=== PATIENT | female | born 1945 | race African-American/Black ===

== ENCOUNTER 2017-10-04 13:21 | Outpatient (CLI) | payer MEDICARE | END 2017-10-04 13:22 | disposition home or self-care (01) | LOC: BICMAMMO 13:21 | PROVIDERS: ATTEND Internal Medicine | DX: Z12.31 Encounter for screening mammogram for malignant neoplasm of breast (principal) | CPT/HCPCS: 77063; 77067 ==

== ENCOUNTER 2018-05-28 06:40 | Emergency (ER) | payer MEDICARE ==
[2018-05-28] MEDS ORDERED: HYDROcodone/Acetaminophen 5/325 mg Tablet ONE (08:02)
--- NOTE | 2018-05-28 09:38 | RAD ---
RIGHT HAND 3 VIEWS: INDICATION: Swelling. FINDINGS: There is a generalized moderate arthropathy throughout the right hand. No acute fracture. No radiop aque foreign body. IMPRESSION: 1. No definitive evidence for acute osseous abnormality of the right hand. 2. Moderate arthropathy. Correlate clinically. POS: [facility]
== END 2018-05-28 08:37 | disposition home or self-care (01) ==
LOC: ERS 06:40
DX: M10.9 Gout, unspecified (principal); E11.9 Type 2 diabetes mellitus without complications; E78.5 Hyperlipidemia, unspecified; I10 Essential (primary) hypertension; K21.9 Gastro-esophageal reflux disease without esophagitis; Z79.899 Other long term (current) drug therapy; Z79.82 Long term (current) use of aspirin; Z79.84 Long term (current) use of oral hypoglycemic drugs

== ENCOUNTER 2018-06-30 15:31 | Outpatient (CLI) | payer MEDICARE ==
--- NOTE | 2018-06-30 16:04 | ULT ---
EXAM: Right lower extremity venous Doppler US HISTORY: Right lower extremity pain FINDINGS: Grayscale, color-flow, Doppler evaluation, spectral analysis of the right lower extremity venous stru ctures is performed with 2-D imaging. The left common femoral, superficial femoral, popliteal, posterior tibial, proximal greater saphenous and profunda femoral veins are imaged. There is normal luminal compressibility, flow, and augmentation the visualized deep venous structures of the right lower extremity. IMPRESSION: No evidence of a deep vein thrombosis in the right lower extremity.
== END 2018-06-30 15:32 | disposition home or self-care (01) ==
LOC: BICULT 15:31
PROVIDERS: ATTEND Internal Medicine
DX: M79.604 Pain in right leg (principal)

== ENCOUNTER 2019-08-29 12:34 | Outpatient (CLI) | payer MEDICARE ==
--- NOTE | 2019-08-29 14:21 | MMO ---
Bilateral MAMMO Bilat Screen [facility]. CLINICAL HISTORY: Patient is 74 years old and is seen for screening. The patient has no family history of breast cancer. The patient has no personal history of cancer. The patient has a history of left Ultrasound Guided Core Biopsy in March, and left Excisional Biopsy in 2014 - benign. VIEWS: The views performed were: bilateral craniocaudal with tomosynthesis and bilateral mediolateral oblique with tomosynthesis. FILMS COMPARED: The present examination has been compared to prior imaging studies performed at [facility] on 03/12/2014, 08/31/2016 and 10/04/2017, and at [facility] on 02/09/2010. This study has been interpreted with the assistance of computer-aided detection. MAMMOGRAM FINDINGS: There are scattered fibroglandular densities. Benign calcifications are noted bilaterally. Nodularity is stable. There are no suspicious masses, suspicious calcifications, or new areas of architectural distortion. IMPRESSION: THERE IS NO MAMMOGRAPHIC EVIDENCE OF MALIGNANCY. A ROUTINE FOLLOW-UP MAMMOGRAM IN 1 YEAR IS RECOMMENDED. THE RESULTS OF THIS EXAM WERE SENT TO THE PATIENT. ACR BI-RADS Category 2 - Benign finding MAMMOGRAPHY NOTE: 1. A negative mammogram report should not delay a biopsy if a dominant of clinically suspicious mass is present. 2. Approximately 10% to 15% of breast cancers are not detected by mammography. 3. Adenosis and dense breasts may obscure an underlying neoplasm. Reported by: ЕКАТЕРИНА HILTON MD Electonically Signed: [id number]
== END 2019-08-29 12:35 | disposition home or self-care (01) ==
LOC: BICMAMMO 12:34
PROVIDERS: ATTEND Nurse Practitioner Family
DX: Z12.31 Encounter for screening mammogram for malignant neoplasm of breast (principal); Z91.89 Other specified personal risk factors, not elsewhere classified
CPT/HCPCS: 77063; 77067

== ENCOUNTER 2022-04-16 10:23 | Outpatient (CLI) | payer MEDICARE, MEDICAID | END 2022-04-16 10:24 | disposition home or self-care (01) | LOC: LABBT 10:23 | PROVIDERS: ATTEND Thoracic Surgery (Cardiothoracic Vascular Surgery) | DX: Z01.812 Encounter for preprocedural laboratory examination (principal); I25.10 Atherosclerotic heart disease of native coronary artery without angina pectoris | CPT/HCPCS: 93005; 93010 ==